=== PATIENT | male | born 1985 | race African-American/Black ===

== ENCOUNTER 2016-12-13 14:56 | Emergency (ER) | payer OTHER ==
[~2016-12-13] VITALS: Ht 185.4 cm; Wt 107.0 kg
[2016-12-13 15:02] VITALS: BP 121/93
[2016-12-13] MEDS ORDERED: FLUORESCEIN SOD 1 MG TEST STRIP OP ONE (16:00)
[2016-12-13] MEDS ORDERED: TETRACAINE HCL 0.5% OPTH(EYE) SOLN 4ML EACHEYE ONE (16:00)
== END 2016-12-13 16:42 | disposition home or self-care (01) ==
LOC: ER 14:56
DX: S05.02XA Injury of conjunctiva and corneal abrasion without foreign body, left eye, initial encounter (principal); Z77.098 Contact with and (suspected) exposure to other hazardous, chiefly nonmedicinal, chemicals; X58.XXXA Exposure to other specified factors, initial encounter; Y93.89 Activity, other specified; Y92.89 Other specified places as the place of occurrence of the external cause; Y99.8 Other external cause status

== ENCOUNTER 2022-07-30 12:13 | Emergency (ER) | payer BC ==
[~2022-07-30] VITALS: Ht 188 cm; Wt 105.1 kg
[2022-07-30 15:28] VITALS: BP 162/122
[2022-07-30] MEDS ORDERED: KETOROLAC TROMETH 30 MG/ML 1ML VIAL IM ONE (16:30)
[2022-07-30] MEDS ORDERED: CYCL-839 PO (16:32)
[2022-07-30] MEDS ORDERED: IBUP600T28 PO (16:32)
== END 2022-07-30 16:41 | disposition home or self-care (01) ==
LOC: ER 12:13
DX: S76.912A Strain of unspecified muscles, fascia and tendons at thigh level, left thigh, initial encounter (principal); X58.XXXA Exposure to other specified factors, initial encounter; Y93.89 Activity, other specified; Y92.89 Other specified places as the place of occurrence of the external cause; Y99.8 Other external cause status
CPT/HCPCS: 93971; 96372; 99285; J1885